=== PATIENT | female | born 1930 | race American Indian/Alaskan Native ===

== ENCOUNTER 2019-04-23 13:22 | Emergency (ER) | payer MEDICARE ==
--- NOTE | 2019-04-23 13:31 | Emergency Department Report ---
Blank Doc - Documentation Documentation: 88 y o female presents with right hip pain x trip and falling in the parking lot today pain with mvt
--- NOTE | 2019-04-23 14:01 | XRay Report ---
RIGHT HIP, 2 views: History: Hip pain. Findings: Mild osteopenia is evident. A right superior pelvic ramus fracture is identified. No additional fractures are currently identified. There is normal articulation at the right hip. Mild joint space narrowing is noted. IMPRESSION: Right superior pelvic ramus fracture.
[2019-04-23] MEDS ORDERED: MORPHINE IV ONE (15:02)
[2019-04-23] MEDS ORDERED: ZOFRAN IV ONE (15:02)
[2019-04-23] MEDS ORDERED: NORCO 5/325 PO ONE (15:49)
--- NOTE | 2019-04-23 16:27 | Emergency Department Report ---
ED Lower Extremity HPI - General Chief Complaint: Fall Stated Complaint: FALL/R SIDE/HIP PAIN Time Seen by Provider: 04/23/19 13:28 Source: patient Mode of arrival: Wheelchair Limitations: No Limitations - History of Present Illness Initial Comments: Mrs. Carrion is a very pleasant healthy 88 -year-old female who injured her right hip during a fall in a parking lot. She tripped over a raised area on the pavement. The fall was witnessed by her granddaughter who is bedside. She has severe right hip pain. No other injuries. No head trauma. She does not require assistance with walking. She was holding her great-grandchild's hand when this occurred. Complaint: hip injury -: Sudden, This afternoon Injury: Hip: Right Severity: severe Worsens With: weight bearing Context: fall - Related Data Previous Rx's Medication Instructions Recorded Last Taken Type HYDROcodone/APAP 5-325 [[place] 1 each PO Q6HR PRN #20 tablet 04/23/19 Unknown Rx 5/325] Allergies Allergy/AdvReac Type Severity Reaction Status Date / Time No Known Allergies Allergy Unverified 04/23/19 13:25 ED Review of Systems ROS: Stated complaint: FALL/R SIDE/HIP PAIN Other details as noted in HPI Comment: All other systems reviewed and negative Constitutional: denies: fever, malaise Respiratory: denies: cough Neurological: denies: numbness, paresthesias ED Past Medical Hx - Past Medical History Previous Medical History?: Yes Hx Hypertension: Yes Hx Diabetes: Yes Hx of Cancer: Yes (COLON) - Surgical History Past Surgical History?: Yes Additional Surgical History: COLON SURGERY - Social History Smoking Status: Former Smoker Substance Use Type: None - Medications Home Medications: Home Medications Medication Instructions Recorded Confirmed Last Taken Type HYDROcodone/APAP 5-325 [[place] 1 each PO Q6HR PRN #20 tablet 04/23/19 Unknown Rx 5/325] ED Physical Exam - General Limitations: No Limitations General appearance: alert, in no apparent distress - Head Head exam: Present: atraumatic, normocephalic - Eye Eye exam: Present: normal appearance - ENT ENT exam: Present: mucous membranes moist - Neck Neck exam: Present: normal inspection, full ROM - Respiratory Respiratory exam: Present: normal lung sounds bilaterally. Absent: respiratory distress, wheezes, rales, rhonchi - Cardiovascular Cardiovascular Exam: Present: regular rate, normal rhythm, normal heart sounds. Absent: rubs, gallop - GI/Abdominal GI/Abdominal exam: Present: soft, normal bowel sounds. Absent: distended, tenderness, guarding, rebound - Extremities Exam Extremities exam: Present: normal inspection - Neurological Exam Neurological exam: Present: alert, oriented X3 - Psychiatric Psychiatric exam: Present: normal affect, normal mood - Skin Skin exam: Present: warm, dry, intact, normal color. Absent: rash - Other Other exam information: Right hip: Mild pain with range of motion. Patient was lay on her hip without d ifficulty. ED Course Vital Signs 04/23/19 13:29 Temperature 98.1 F Pulse Rate 81 Respiratory 20 Rate Blood Pressure 133/53 O2 Sat by Pulse 97 Oximetry ED Lower Extremity MDM - Radiology Data Radiology results: report reviewed, image reviewed interpreted by me: Right superior pubic ramus fracture: Pelvis radiographs - Medical Decision Making Ms. Carrion has pelvis fracture of the right superior ramus. She was provided a walker prior to discharge. She has decided to be discharged home. Hospitalization was offered for rehabilitation. Critical care attestation.: If time is entered above; I have spent that time in minutes in the direct care of this critically ill patient, excluding procedure time. ED Disposition Clinical Impression: Pelvis fracture, right, Fracture of ramus of right pubis, Fall Disposition: - TO HOME OR SELFCARE Is pt being admited?: No Does the pt Need Aspirin: No Condition: Stable Instructions: Pelvic Fracture (ED) Prescriptions: HYDROcodone/APAP 5-325 [[place] 5/325] 1 each PO Q6HR PRN #20 tablet PRN Reason: Pain Referrals: QUENTIN PEÑA MD [Staff Physician] - 7-10 days
[2019-04-23 17:17] VITALS: BP 126/66
== END 2019-04-23 16:42 | disposition home or self-care (01) ==
LOC: ED 13:22
DX: S32.89XA Fracture of other parts of pelvis, initial encounter for closed fracture (principal); S32.591A Other specified fracture of right pubis, initial encounter for closed fracture; I10 Essential (primary) hypertension; E11.9 Type 2 diabetes mellitus without complications; Z85.038 Personal history of other malignant neoplasm of large intestine; Z87.891 Personal history of nicotine dependence; W19.XXXA Unspecified fall, initial encounter; Y93.89 Activity, other specified; Y92.481 Parking lot as the place of occurrence of the external cause; Y99.8 Other external cause status
CPT/HCPCS: 73502; 96374; 96375; 99283; J2270; J2405; 72170; 99282